=== PATIENT | female | born 1945 | race Caucasian/White ===

== ENCOUNTER 2017-02-22 11:59 | Observation (INO) | payer MEDICARE, OTHER ==
[~2017-02-22] VITALS: Ht 152.4 cm; Wt 78.5 kg
[2017-02-22 13:20] LABS: HEMOGLOBIN 15.5 gm/dl (12.3-15.3); RED BLOOD COUNT 4.75 M/UL (4.00-5.10); WHITE BLOOD COUNT 9.4 K/UL (4.5-11.0)
[2017-02-22 13:58] LABS: BUN/CREATININE RATIO 46 (0-10)
[2017-02-22] MEDS ORDERED: ATENOLOL100 MG PO (18:23)
[2017-02-22] MEDS ORDERED: LISINOPRIL10 MG PO (18:23)
[2017-02-22] MEDS ORDERED: LORTAB 5-325 M1 EACH PO (18:24)
[2017-02-22] MEDS ORDERED: NABUMETONE750 MG PO (18:25)
[2017-02-22] MEDS ORDERED: MIRALAX17 GM PO (18:25)
[2017-02-23 08:04] LABS: HEMOGLOBIN 14.3 gm/dl (12.3-15.3); RED BLOOD COUNT 4.44 M/UL (4.00-5.10); WHITE BLOOD COUNT 8.8 K/UL (4.5-11.0)
[2017-02-23 08:29] LABS: BUN/CREATININE RATIO 27 (0-10)
== END 2017-02-23 19:25 | disposition home or self-care (01) ==
LOC: ER1 11:59 → ZEROF 15:07 → M/S 16:55
PROVIDERS: Emergency Medicine; ADMIT Internal Medicine
DX: R06.02 Shortness of breath (principal); R07.9 Chest pain, unspecified; E11.9 Type 2 diabetes mellitus without complications; E78.1 Pure hyperglyceridemia; I10 Essential (primary) hypertension; E78.5 Hyperlipidemia, unspecified; E66.9 Obesity, unspecified; M19.90 Unspecified osteoarthritis, unspecified site; Z79.891 Long term (current) use of opiate analgesic; Z79.899 Other long term (current) drug therapy; Z96.612 Presence of left artificial shoulder joint; Z90.89 Acquired absence of other organs; Z98.49 Cataract extraction status, unspecified eye; Z90.49 Acquired absence of other specified parts of digestive tract; Z82.49 Family history of ischemic heart disease and other diseases of the circulatory system
CPT/HCPCS: ECHO; 36415; 71010; 78452; 80048; 80053; 80061; 82550; 82553; 82962; 84484; 85025; 85027; 93005; 93017; 93306; 99285; A9502; G0378; J1650; J2270; J2785